=== PATIENT | male | born 1980 | race Caucasian/White ===

== ENCOUNTER 2018-06-24 14:33 | Emergency (ER) | payer SELFPAY ==
[~2018-06-24] VITALS: Ht 188 cm; Wt 97.5 kg
--- OUTSIDE RECORDS SUMMARY | 2018-06-24 14:37 | XMS REPORT ---
Author Author ABEL OZUNA Organization [facility] Address [address] [place] [address] Care Team Providers Care Slot Machine Floor Person Name Role Phone ABEL OZUNA Unavailable PROBLEMS Type Condition ICD9-CM Code [id number] Code Onset Dates Condition Status SNOMED Code Problem Cigarette smoker motivated to quit F17.200 Active [id number] ALLERGIES No Known Allergies ENCOUNTERS Encounter Location Date Diagnosis [facility] [id number] [address] Jan, [facility] [address] [facility] [id number] [address] Jan, Boil, back L02.222 and Cigarette smoker motivated to quit F17.200 IMMUNIZATIONS No Known Immunizations SOCIAL HISTORY Never Assessed REASON FOR VISIT Lump on back-twooden,RMA, pt complaining of a knot in the center of his back, been there for about three days now PLAN OF CARE Activity Details Follow Up prn Reason: VITAL SIGNS Height 6 ft 2 in in 2018-01-13 Weight 211.5 lbs 2018-01-13 Temperature 98.2 degrees Fahrenheit 2018-01-13 Heart Rate 104 bpm 2018-01-13 Respiratory Rate 18 2018-01-13 Oximetry on room air:94 % 2018-01-13 BMI 27.15 kg/m2 2018-01-13 Blood pressure systolic 110 mmHg 2018-01-13 Blood pressure diastolic 80 mmHg 2018-01-13 MEDICATIONS Medication Instructions Dosage Frequency Start Date End Date Duration Status Bactrim DS 800-160 MG Orally Twice a day 1 tablet 12h Jan,Jan 10 day(s) Active Chantix Starting Month Kai 0.5 MG X 11 & 1 MG X 42 Orally as directed as directed Jan, Feb, 4 weeks Active RESULTS No Results PROCEDURES No Known procedures INSTRUCTIONS MEDICATIONS ADMINISTERED No Known Medications MEDICAL (GENERAL) HISTORY Type Description Date Surgical History broken right arm 1985 Hospitalization History surgery
--- OUTSIDE RECORDS SUMMARY | 2018-06-24 14:37 | XMS REPORT ---
Author Author ABEL OZUNA Organization [facility] Address [address] [place] [address] Care Team Providers Care Power Tong Operator Name Role Phone ABEL OZUNA Unavailable PROBLEMS Type Condition ICD9-CM Code [id number] Code Onset Dates Condition Status SNOMED Code Problem Erectile dysfunction, unspecified erectile dysfunction type N52.9 Active [id number] Problem Cigarette smoker motivated to quit F17.200 Active [id number] ALLERGIES No Known Allergies ENCOUNTERS Encounter Location Date Diagnosis [facility] [id number] [address] Jan, Voiding dysfunction N39.8 and Erectile dysfunction, unspecified erectile dysfunction type N52.9 [facility] [id number] [place] [phone] Jan, Boil, back L02.222 and Cigarette smoker motivated to quit F17.200 IMMUNIZATIONS No Known Immunizations SOCIAL HISTORY Never Assessed REASON FOR VISIT Establish Care-ALICIA zapata, pt is having some bladder issues, having some erectile dysfunction issues PLAN OF CARE Activity Details Follow Up 6 Months, prn Reason: Pending Test LIPID PANEL Pending Test CMP Pending Test PSA (FREE AND TOTAL) VITAL SIGNS Height 6 ft 2 in in 2018-01-26 Weight 97.5 lbs 2018-01-26 Temperature 97.2 degrees Fahrenheit 2018-01-26 Heart Rate 98 bpm 2018-01-26 Respiratory Rate 18 2018-01-26 Oximetry on room air:98 % 2018-01-26 BMI 12.52 kg/m2 2018-01-26 Blood pressure systolic 102 mmHg 2018-01-26 Blood pressure diastolic 80 mmHg 2018-01-26 MEDICATIONS Medication Instructions Dosage Frequency Start Date End Date Duration Status Chantix Starting Month Kai 0.5 MG X 11 & 1 MG X 42 Orally as directed as directed Jan, Feb, 4 weeks Active Sildenafil Citrate 100 mg Orally as directed 1 tab 30min-1hr prior to sex Jan, 30 day(s) Active RESULTS Name Result Date Reference Range UA LONG DIP (IN HOUSE) Lot # [id number] Exp date 06/2018 Clarity Clear Color Yellow Odor None GLU Neg ALOK Neg KET Neg SG 1.030 BLO Neg pH 6.0 Protein Trace URO 0.2 NIT Neg BEV Neg Lot # Exp date PROCEDURES Procedure Date Ordered Result Body Site COMPREHEN METABOLIC PANEL Jan 26, 2018 LIPID PANEL Jan 26, 2018 VENIPUNCT, ROUTINE* Jan 26, 2018 ASSAY OF PSA, FREE Jan 26, 2018 ASSAY OF PSA, TOTAL Jan 26, 2018 URINALYSIS, AUTO, W/O SCOPE Jan 26, 2018 INSTRUCTIONS MEDICATIONS ADMINISTERED No Known Medications MEDICAL (GENERAL) HISTORY Type Description Date Surgical History broken right arm 1984 Hospitalization History surgery
--- NOTE | 2018-06-24 14:59 | ED Abdominal Pain ---
General Chief Complaint: Abdominal/GI Problems Stated Complaint: VOMITING Source of Information: Patient Exam Limitations: No Limitations History of Present Illness Date Seen by Provider: Jun 24, 2018 Time Seen by Provider: 14:58 Initial Comments Preoperative vehicle with reports of epigastric abdominal pain associated with nausea vomiting and diarrhea for the past 3 days. He had a similar episode about a month ago but it only lasted about 12-24 hours before resolving on its own. Otherwise healthy. Denies alcohol or marijuana use. Timing/Duration: 2-3 Days Severity/Quality: Moderate Location: Epigastric Radiation: No Radiation Activities at Onset: None Associated Symptoms: Nausea/Vomiting Allergies and Home Medications Allergies Coded Allergies: No Known Drug Allergies (Unverified , 06/24/18) Patient Home Medication List Home Medication List Reviewed: Yes Review of Systems Review of Systems Constitutional: see HPI EENTM: No Symptoms Reported Respiratory: No Symptoms Reported Cardiovascular: No Symptoms Reported Gastrointestinal: See HPI, Abdominal Pain, Diarrhea, Nausea, Vomiting Genitourinary: No Symptoms Reported Musculoskeletal: no symptoms reported Skin: no symptoms reported Psychiatric/Neurological: No Symptoms Reported Endocrine: No Symptoms Reported Hematologic/Lymphatic: No Symptoms Reported Past [id number] Hx Patient Social History Recent Foreign Travel: No Contact w/Someone Who Travel: No Physical Exam Vital Signs Vital Signs - First Documented 06/24/18 14:55 Temp 98.1 Pulse 69 Resp 18 B/P (MAP) 119/68 (85) Pulse Ox 98 Capillary Refill : Height/Weight/BMI Height: '" Weight: lbs. oz. kg; BMI Method: General Appearance: WD/WN, no apparent distress HEENT: PERRL/EOMI, normal ENT inspection Respiratory: normal breath sounds, no respiratory distress, no accessory muscle use Gastrointestinal: normal bowel sounds, soft, tenderness Extremities: normal range of motion, non-tender Neurologic/Psychiatric: alert, normal mood/affect, oriented x 3 Skin: normal color, warm/dry Progress/Results/Core Measures Results/Orders Lab Results Laboratory Tests Test 06/24/18 15:11 06/24/18 16:29 Range/Units White Blood Count 11.7 H 4.3-11.0 10^3/uL Red Blood Count 4.77 4.35-5.85 10^6/uL Hemoglobin 14.5 13.3-17.7 G/DL Hematocrit 42 40-54 % Mean Corpuscular Volume 88 80-99 FL Mean Corpuscular Hemoglobin 30 25-34 PG Mean Corpuscular Hemoglobin Concent 35 32-36 G/DL Red Cell Distribution Width 13.4 10.0-14.5 % Platelet Count 339 130-400 10^3/uL Mean Platelet Volume 9.3 7.4-10.4 FL Neutrophils (%) (Auto) 68 42-75 % Lymphocytes (%) (Auto) 24 12-44 % Monocytes (%) (Auto) 8 0-12 % Eosinophils (%) (Auto) 1 0-10 % Basophils (%) (Auto) 0 0-10 % Neutrophils # (Auto) 7.9 H 1.8-7.8 X 10^3 Lymphocytes # (Auto) 2.8 1.0-4.0 X 10^3 Monocytes # (Auto) 0.9 0.0-1.0 X 10^3 Eosinophils # (Auto) 0.1 0.0-0.3 10^3/uL Basophils # (Auto) 0.0 0.0-0.1 10^3/uL Sodium Level 142 135-145 MMOL/L Potassium Level 3.6 3.6-5.0 MMOL/L Chloride Level 106 98-107 MMOL/L Carbon Dioxide Level 24 21-32 MMOL/L Anion Gap 12 5-14 MMOL/L Blood Urea Nitrogen 19 H 7-18 MG/DL Creatinine 0.94 0.60-1.30 MG/DL Estimat Glomerular Filtration Rate > 60 BUN/Creatinine Ratio 20 Glucose Level 104 70-105 MG/DL Calcium Level 9.6 8.5-10.1 MG/DL Corrected Calcium 8.5-10.1 MG/DL Total Bilirubin 0.6 0.1-1.0 MG/DL Aspartate Amino Transf (AST/SGOT) 13 5-34 U/L Alanine Aminotransferase (ALT/SGPT) 14 0-55 U/L Alkaline Phosphatase 95 40-136 U/L Total Protein 7.2 6.4-8.2 GM/DL Albumin 4.7 H 3.2-4.5 GM/DL Lipase 184 H 8-78 U/L Urine Color YELLOW Urine Clarity CLEAR Urine pH 7 5-9 Urine Specific Webster 1.010 L 1.016-1.022 Urine Protein 2+ H NEGATIVE Urine Glucose (UA) NEGATIVE NEGATIVE Urine Ketones 2+ H NEGATIVE Urine Nitrite NEGATIVE NEGATIVE Urine Bilirubin NEGATIVE NEGATIVE Urine Urobilinogen NORMAL NORMAL MG/DL Urine Leukocyte Esterase 1+ H NEGATIVE Urine RBC (Auto) NEGATIVE NEGATIVE Urine RBC NONE /HPF Urine WBC 2-5 /HPF Urine Squamous Epithelial Cells 2-5 /HPF Urine Crystals NONE /LPF Urine Bacteria NEGATIVE /HPF Urine Casts NONE /LPF Urine Mucus NEGATIVE /LPF Urine Culture Indicated NO Urine Opiates Screen NEGATIVE NEGATIVE Urine Oxycodone Screen NEGATIVE NEGATIVE Urine Methadone Screen NEGATIVE NEGATIVE Urine Propoxyphene Screen NEGATIVE NEGATIVE Urine Barbiturates Screen NEGATIVE NEGATIVE Ur Tricyclic Antidepressants Screen NEGATIVE NEGATIVE Urine Phencyclidine Screen NEGATIVE NEGATIVE Urine Amphetamines Screen NEGATIVE NEGATIVE Urine Methamphetamines Screen NEGATIVE NEGATIVE Urine Benzodiazepines Screen NEGATIVE NEGATIVE Urine Cocaine Screen NEGATIVE NEGATIVE Urine Cannabinoids Screen POSITIVE H NEGATIVE My Orders Orders - JODI HAGEN APRN Cbc With Automated Diff (06/24/18 14:43) Comprehensive Metabolic Panel (06/24/18 14:43) Ua Culture If Indicated (06/24/18 14:43) Lipase (06/24/18 14:43) Iv Heplock-Insert (Order) (06/24/18 14:43) Ns Iv 1000 Ml (Sodium Chloride 0.9%) (06/24/18 15:00) Ondansetron Injection (Zofran Injectio (06/24/18 15:00) Ketorolac Injection (Toradol Injection) (06/24/18 15:00) Fentanyl Injection (Sublimaze Injection (06/24/18 15:00) Ct Abdomen/Pelvis W (06/24/18 14:57) Iohexol Injection (Omnipaque 350 Mg/Ml 1 (06/24/18 15:15) Received Contrast (Hold Metformin- Contr (06/24/18 15:15) Fentanyl Injection (Sublimaze Injection (06/24/18 16:00) Promethazine Injection (Phenergan Injec (06/24/18 16:00) Ns Iv 1000 Ml (Sodium Chloride 0.9%) (06/24/18 16:00) Drug Screen Stat (Urine) (06/24/18 15:59) Haloperidol Injection (Haldol Injectio (06/24/18 17:45) Ns (Ivpb) (Sodium Chloride 0.9%) (06/24/18 17:45) Haloperidol Injection (Haldol Injectio (06/24/18 17:45) Medications Given in ED Current Medications Medications Dose Ordered Sig/Ward Route Start Time Stop Time Status Last Admin Dose Admin Fentanyl Citrate 50 mcg ONCE ONCE IVP 06/24/18 15:00 06/24/18 15:01 DC 06/24/18 15:15 50 MCG Fentanyl Citrate 50 mcg ONCE ONCE IVP 06/24/18 16:00 06/24/18 16:01 DC 06/24/18 16:02 50 MCG Iohexol 100 ml ONCE ONCE IV 06/24/18 15:15 06/24/18 15:16 DC 06/24/18 15:40 100 ML Ketorolac Tromethamine 15 mg ONCE ONCE IVP 06/24/18 15:00 06/24/18 15:01 DC 06/24/18 15:16 15 MG Ondansetron HCl 8 mg ONCE ONCE IVP 06/24/18 15:00 06/24/18 15:01 DC 06/24/18 15:15 8 MG Promethazine HCl 12.5 mg ONCE ONCE IVP 06/24/18 16:00 06/24/18 16:01 DC 06/24/18 16:02 12.5 MG Vital Signs/I&O 06/24/18 14:55 Temp 98.1 Pulse 69 Resp 18 B/P (MAP) 119/68 (85) Pulse Ox 98 Departure Communication (Admissions) 5220-he denies much improvement after 100 g of fentanyl and 8 of Zofran and 12.5 mg of Phenergan.. He initially reported no marijuana use. However this is in his urine. I discussed this with him and he states that he actually uses it probably more than 2-3 times per week he estimates. I suspect hyperemesis cannabinoids syndrome so we will try some haloperidol and IV fluids. Impression Primary Impression: Cannabinoid hyperemesis syndrome Disposition: HOME, SELF-CARE Condition: Stable Departure-Patient Inst. Decision time for Depature: 17:40 Patient Instructions: No Instuctions Given Add. Discharge Instructions: 1. This tends to be a recurrent problem in individuals who continue to smoke marijuana frequently. Discontinuing marijuana use is the most helpful treatment for this. At home, you can try warm showers letting the hot water hit your abdomen or topical capsaicin cream applied to the abdomen. Clear liquids only for the next 24 hours. Return to the emergency room for any concerns. Scripts Prochlorperazine Maleate (Compazine) 10 Mg Tablet 10 MG PO TID PRN for NAUSEA/VOMITING, #14 TAB Prov: JODI HAGEN APRN 06/24/18 Work/School Note: Work Release Form Date Seen in the Emergency Department: Jun 24, 2018 Return to Work: Jun 26, 2018 JODI HAGEN APRN Jun 24, 2018 14:59
[2018-06-24] MEDS ORDERED: fentaNYL INJECTION 100 MCG/2 ML AMP IVP ONE ×2 (15:00→16:00)
[2018-06-24] MEDS ORDERED: ONDANSETRON 4 MG/2 ML (SDV) Z0FRAN IVP ONE (15:00)
[2018-06-24] MEDS ORDERED: NS IV 1000 ML 1,000 ML IV SCH ×2 (15:00→16:00)
[2018-06-24] MEDS ORDERED: KETOROLAC 30 MG/ML VIAL IVP ONE (15:00)
[2018-06-24 15:14] LABS: BASOPHILS % (AUTO) 0 % (0-10); EOSINOPHILS # (AUTO) 0.1 10^3/uL (0.0-0.3); EOSINOPHILS % (AUTO) 1 % (0-10); HEMATOCRIT 42 % (40-54); HEMOGLOBIN 14.5 G/DL (13.3-17.7); LYMPHOCYTES # (AUTO) 2.8 X 10^3 (1.0-4.0); LYMPHOCYTES % (AUTO) 24 % (12-44); MEAN CORPUSCULAR HEMOGLOBIN 30 PG (25-34); MEAN CORPUSCULAR HGB CONC 35 G/DL (32-36); MEAN CORPUSCULAR VOLUME 88 FL (80-99); MEAN PLATELET VOLUME 9.3 FL (7.4-10.4); MONOCYTES # (AUTO) 0.9 X 10^3 (0.0-1.0); MONOCYTES % (AUTO) 8 % (0-12); NEUTROPHILS # (AUTO) 7.9 X 10^3 (1.8-7.8); NEUTROPHILS % (AUTO) 68 % (42-75); PLATELET COUNT 339 10^3/uL (130-400); RED CELL DISTRIBUTION WIDTH 13.4 % (10.0-14.5); WHITE BLOOD COUNT 11.7 10^3/uL (4.3-11.0)
[2018-06-24] MEDS ORDERED: IOHEXOL 350 MG/ML 100 ML (OMNIPAQUE 350) VIAL IV ONE (15:15)
[2018-06-24] MEDS ORDERED: HOLD METFORMIN - RECEIVED CONTRAST 20 ML VIAL IV SCH (15:15)
[2018-06-24 15:41] LABS: ALANINE AMINOTRANSFERASE 14 U/L (0-55); ALBUMIN 4.7 GM/DL (3.2-4.5); ALKALINE PHOSPHATASE 95 U/L (40-136); BILIRUBIN,TOTAL 0.6 MG/DL (0.1-1.0); BUN/CREATININE RATIO 20; CALCIUM 9.6 MG/DL (8.5-10.1); CARBON DIOXIDE 24 MMOL/L (21-32); CHLORIDE 106 MMOL/L (98-107); CREATININE SERUM 0.94 MG/DL (0.60-1.30); GFR ESTIMATED > 60; GLUCOSE 104 MG/DL (70-105); LIPASE 184 U/L (8-78); POTASSIUM 3.6 MMOL/L (3.6-5.0); SODIUM 142 MMOL/L (135-145); TOTAL PROTEIN 7.2 GM/DL (6.4-8.2)
--- NOTE | 2018-06-24 15:58 | Diagnostic Imaging Report ---
PROCEDURE: CT abdomen and pelvis with contrast. TECHNIQUE: Multiple contiguous axial images were obtained through the abdomen and pelvis after administration of intravenous contrast. Auto Exposure Controls were utilized during the CT exam to meet ALARA standards for radiation dose reduction. INDICATION: Vomiting with nausea and abdominal cramping. COMPARISON: No prior studies are available for comparison. FINDINGS: The lung bases are clear. The liver and gallbladder are unremarkable. No discrete liver mass or evidence of biliary ductal dilatation is seen. Pancreas and spleen are unremarkable. No adrenal mass is detected. The kidneys are unremarkable. The aorta is non-aneurysmal. No central retroperitoneal or mesenteric lymphadenopathy is seen. The small and large bowel loops are normal in caliber. There is no obstruction. Appendix is not well visualized, but no inflammatory process in the right lower quadrant is seen. There is no ascites. Unopacified bladder is unremarkable. Prostate is unremarkable. No pelvic lymphadenopathy is seen. Bony structures appear nonacute. IMPRESSION: Unremarkable CT of the abdomen and pelvis. No acute abnormality is detected. Dictated by: Dictated on workstation # [id number]
[2018-06-24] MEDS ORDERED: PROMETHAZINE INJ 25 MG/ML (PHENERGAN) AMP IVP ONE (16:00)
[2018-06-24 16:37] LABS: BILIRUBIN,URINE NEGATIVE (NEGATIVE); CLARITY,URINE CLEAR; COLOR,URINE YELLOW; GLUCOSE, URINE (UA) NEGATIVE (NEGATIVE); KETONES,URINE 2+ (NEGATIVE); LEUKOCYTE ESTERASE ,URINE 1+ (NEGATIVE); NITRITE,URINE NEGATIVE (NEGATIVE); PH,URINE 7 (5-9); PROTEIN,URINE 2+ (NEGATIVE); UROBILINOGEN,URINE NORMAL (NORMAL)
[2018-06-24 16:53] LABS: BACTERIA,URINE NEGATIVE /HPF
[2018-06-24 17:01] LABS: AMPHETAMINE SCREEN, URINE NEGATIVE (NEGATIVE); BARBITURATE SCREEN URINE NEGATIVE (NEGATIVE); BENZODIAZEPINES SCREEN URINE NEGATIVE (NEGATIVE); CANNABINOID SCREEN, URINE POSITIVE (NEGATIVE); COCAINE SCREEN URINE NEGATIVE (NEGATIVE); METHADONE STAT NEGATIVE (NEGATIVE); METHAMPHETAMINE SCREEN URINE S NEGATIVE (NEGATIVE); OPIATE SCREEN URINE NEGATIVE (NEGATIVE); OXYCODONE STAT NEGATIVE (NEGATIVE); PROPOXYPHENE STAT NEGATIVE (NEGATIVE); TRICYCLIC ANTIDEPRESSANTS SCRE NEGATIVE (NEGATIVE)
[2018-06-24] MEDS ORDERED: NS (IVPB) 250 ML IV ONE (17:45)
[2018-06-24] MEDS ORDERED: HALOPERIDOL 5 MG/ML (HALDOL) AMP IV ONE ×2 (17:45)
[2018-06-24] MEDS ORDERED: PROC-1 PO (17:48)
[2018-06-24 18:16] VITALS: BP 117/58
== END 2018-06-24 18:23 | disposition home or self-care (01) ==
LOC: ER 14:35
DX: F12.188 Cannabis abuse with other cannabis-induced disorder (principal); R11.10 Vomiting, unspecified
CPT/HCPCS: 36415; 74177; 80053; 80306; 81000; 83690; 85025

== ENCOUNTER 2019-05-16 08:04 | Emergency (ER) | payer OTHER ==
[~2019-05-16] VITALS: Ht 187 cm; Wt 99.7 kg
[~2019-05-16 08:04] MED LIST: PROC-1 PO
[2019-05-16] MEDS ORDERED: NS IV 1000 ML 1,000 ML IV SCH (08:14)
[2019-05-16] MEDS ORDERED: ONDANSETRON 4 MG/2 ML (SDV) Z0FRAN ONE (08:14)
[2019-05-16] MEDS ORDERED: NS IV 1000 ML 1,000 ML IV ONE (08:14)
[2019-05-16] MEDS ORDERED: fentaNYL INJECTION 100 MCG/2 ML AMP ONE (08:14)
[2019-05-16] MEDS ORDERED: fentaNYL INJECTION 100 MCG/2 ML AMP IVP ONE ×2 (08:15→09:15)
[2019-05-16] MEDS ORDERED: ONDANSETRON 4 MG/2 ML (SDV) Z0FRAN IVP ONE (08:15)
--- NOTE | 2019-05-16 08:18 | ED Abdominal Pain ---
General Chief Complaint: Abdominal/GI Problems Stated Complaint: PANCREATITIS;VOMITING Source of Information: Patient, Other Exam Limitations: No Limitations History of Present Illness Date Seen by Provider: May 16, 2019 Time Seen by Provider: 07:59 Initial Comments Patient presents to ER by private conveyance with chief complaint is having some epigastric abdominal pain that is severe, causing sweating chills but no fever that he is aware of. He is having nausea and vomiting. He has a history of pancreatitis and this is his sixth bout in the past year and a half. He thought he had another control [facility]. This morning he was unable to keep down Zofran. He rates his pain as severe. He does not have anything at home for the pain. He has no history of abdominal surgeries. He's never drank alcohol. No history of diabetes or hypertriglyceridemia. Allergies and Home Medications Allergies Coded Allergies: No Known Drug Allergies (Unverified , 06/24/18) Home Medications Hydrocodone/Acetaminophen 1 Each Tablet, 1 TAB PO Q6H Prescribed by: KASSI ALLEN on 05/16/19 1108 Ondansetron 4 Mg Tab.rapdis, 4 MG PO Q6H PRN for NAUSEA/VOMITING Prescribed by: KASSI ALLEN on 05/16/19 1108 Prochlorperazine Maleate 10 Mg Tablet, 10 MG PO TID PRN for NAUSEA/VOMITING Prescribed by: JODI HAGEN on 06/24/18 1748 Promethazine HCl 25 Mg Tablet, 25 MG PO Q6H PRN for NAUSEA/VOMITING Prescribed by: KASSI ALLEN on 05/16/19 1108 Patient Home Medication List Home Medication List Reviewed: Yes Review of Systems Review of Systems Constitutional: No chills, No diaphoresis EENTM: No Blurred Vision, No Double Vision Respiratory: Denies Cough, Denies Shortness of Air Cardiovascular: Denies Chest Pain, Denies Lightheadedness Gastrointestinal: See HPI; Denies Abdomen Distended; Abdominal Pain; Denies Constipated; Diarrhea, Nausea, Poor Fluid Intake, Vomiting Genitourinary: Denies Burning, Denies Discharge Musculoskeletal: No back pain, No joint pain Skin: No pruritus, No rash Psychiatric/Neurological: Denies Anxiety, Denies Depressed All Other Systems Reviewed Negative Unless Noted: Yes Past Fbcquar-Tibyvx-Frbbfw Hx Patient Social History Alcohol Use: Denies Use Recreational Drug Use: Yes Drug of Choice: cannabis Smoking Status: Former Smoker Type Used: Cigarettes Former Smoker, Quit: Jan 07, 2018 Recent Hopitalizations: No Seasonal Allergies Seasonal Allergies: No Past Medical History Surgeries: No Respiratory: No Cardiac: No Neurological: No Genitourinary: No Gastrointestinal: No Musculoskeletal: No Endocrine: No HEENT: No Cancer: No Psychosocial: No Integumentary: No Physical Exam Vital Signs Vital Signs - First Documented 05/16/19 08:07 Temp 36.3 Pulse 66 Resp 16 B/P (MAP) 140/87 (104) Pulse Ox 99 O2 Delivery Room Air Capillary Refill : Height/Weight/BMI Height: 6'2.00" Weight: 215lbs. oz. 97.338112ra; BMI Method:Stated General Appearance: WD/WN, no apparent distress HEENT: PERRL/EOMI, pharynx normal Neck: full range of motion, supple, normal inspection Respiratory: lungs clear, normal breath sounds, no respiratory distress, no accessory muscle use Cardiovascular: normal peripheral pulses, regular rate, rhythm Peripheral Pulses: 2+ Radial Pulses (R), 2+ Radial Pulses (L) Gastrointestinal: normal bowel sounds, no organomegaly, tenderness (epigastric region. Negative for Olivas sign) Extremities: normal range of motion, non-tender, normal capillary refill Neurologic/Psychiatric: alert, normal mood/affect, oriented x 3 Progress/Results/Core Measures Results/Orders Lab Results Laboratory Tests Test 05/16/19 08:10 05/16/19 09:40 Range/Units White Blood Count 13.2 H 4.3-11.0 10^3/uL Red Blood Count 5.36 4.35-5.85 10^6/uL Hemoglobin 16.5 13.3-17.7 G/DL Hematocrit 47 40-54 % Mean Corpuscular Volume 88 80-99 FL Mean Corpuscular Hemoglobin 31 25-34 PG Mean Corpuscular Hemoglobin Concent 35 32-36 G/DL Red Cell Distribution Width 12.8 10.0-14.5 % Platelet Count 340 130-400 10^3/uL Mean Platelet Volume 9.5 7.4-10.4 FL Neutrophils (%) (Auto) 65 42-75 % Lymphocytes (%) (Auto) 24 12-44 % Monocytes (%) (Auto) 9 0-12 % Eosinophils (%) (Auto) 2 0-10 % Basophils (%) (Auto) 0 0-10 % Neutrophils # (Auto) 8.6 H 1.8-7.8 X 10^3 Lymphocytes # (Auto) 3.2 1.0-4.0 X 10^3 Monocytes # (Auto) 1.2 H 0.0-1.0 X 10^3 Eosinophils # (Auto) 0.3 0.0-0.3 10^3/uL Basophils # (Auto) 0.0 0.0-0.1 10^3/uL Sodium Level 143 135-145 MMOL/L Potassium Level 3.9 3.6-5.0 MMOL/L Chloride Level 105 98-107 MMOL/L Carbon Dioxide Level 22 21-32 MMOL/L Anion Gap 16 H 5-14 MMOL/L Blood Urea Nitrogen 13 7-18 MG/DL Creatinine 1.02 0.60-1.30 MG/DL Estimat Glomerular Filtration Rate > 60 BUN/Creatinine Ratio 13 Glucose Level 114 H 70-105 MG/DL Calcium Level 10.0 8.5-10.1 MG/DL Corrected Calcium 8.5-10.1 MG/DL Total Bilirubin 0.4 0.1-1.0 MG/DL Aspartate Amino Transf (AST/SGOT) 14 5-34 U/L Alanine Aminotransferase (ALT/SGPT) 13 0-55 U/L Alkaline Phosphatase 117 40-136 U/L C-Reactive Protein High Sensitivity 0.28 0.00-0.50 MG/DL Total Protein 7.5 6.4-8.2 GM/DL Albumin 4.7 H 3.2-4.5 GM/DL Triglycerides Level 146 <150 MG/DL Amylase Level 42 25-125 U/L Lipase 29 8-78 U/L Urine Color YELLOW Urine Clarity SL CLOUDY Urine pH 8.5 5-9 Urine Specific [place] 1.015 L 1.016-1.022 Urine Protein NEGATIVE NEGATIVE Urine Glucose (UA) NEGATIVE NEGATIVE Urine Ketones NEGATIVE NEGATIVE Urine Nitrite NEGATIVE NEGATIVE Urine Bilirubin NEGATIVE NEGATIVE Urine Urobilinogen 0.2 < = 1.0 MG/DL Urine Leukocyte Esterase NEGATIVE NEGATIVE Urine RBC (Auto) NEGATIVE NEGATIVE Urine RBC NONE /HPF Urine WBC 0-2 /HPF Urine Squamous Epithelial Cells 0-2 /HPF Urine Crystals PRESENT H /LPF Urine Amorphous Sediment MOD CLARISA PHOSPHATE H /LPF Urine Bacteria NEGATIVE /HPF Urine Casts NONE /LPF Urine Mucus NEGATIVE /LPF Urine Culture Indicated NO Urine Opiates Screen NEGATIVE NEGATIVE Urine Oxycodone Screen NEGATIVE NEGATIVE Urine Methadone Screen NEGATIVE NEGATIVE Urine Propoxyphene Screen NEGATIVE NEGATIVE Urine Barbiturates Screen NEGATIVE NEGATIVE Ur Tricyclic Antidepressants Screen NEGATIVE NEGATIVE Urine Phencyclidine Screen NEGATIVE NEGATIVE Urine Amphetamines Screen NEGATIVE NEGATIVE Urine Methamphetamines Screen NEGATIVE NEGATIVE Urine Benzodiazepines Screen NEGATIVE NEGATIVE Urine Cocaine Screen NEGATIVE NEGATIVE Urine Cannabinoids Screen POSITIVE H NEGATIVE My Orders Orders - KASSI ALLEN Fentanyl Injection (Sublimaze Injection (05/16/19 08:15) Ondansetron Injection (Zofran Injectio (05/16/19 08:15) Cbc With Automated Diff (05/16/19 08:14) Comprehensive Metabolic Panel (05/16/19 08:14) Lipase (05/16/19 08:14) Amylase (05/16/19 08:14) Hs C Reactive Protein (05/16/19 08:14) Ed Iv/Invasive Line Start (05/16/19 08:14) Ns Iv 1000 Ml (Sodium Chloride 0.9%) (05/16/19 08:14) Ns Iv 1000 Ml (Sodium Chloride 0.9%) (05/16/19 08:14) Ct Abdomen/Pelvis W (05/16/19 08:14) Ua Culture If Indicated (05/16/19 08:14) Triglycerides (05/16/19 08:18) Pantoprazole Injection (Protonix Injecti (05/16/19 08:30) Fentanyl Injection (Sublimaze Injection (05/16/19 08:14) Ondansetron Injection (Zofran Injectio (05/16/19 08:14) Iohexol Injection (Omnipaque 350 Mg/Ml 1 (05/16/19 08:45) Received Contrast (Hold Metformin- Contr (05/16/19 08:45) Ns (Ivpb) (Sodium Chloride 0.9% Ivpb Bag (05/16/19 08:45) Fentanyl Injection (Sublimaze Injection (05/16/19 09:15) Drug Screen Stat (Urine) (05/16/19 09:14) Morphine Injection (Morphine Injection (05/16/19 11:20) Ketamine Syringe (Ed Only) (Ketamine Syr (05/16/19 11:30) Promethazine Injection (Phenergan Injec (05/16/19 11:30) Ed Iv/Invasive Line Start (05/16/19 11:20) Ns Iv 500 Ml (Sodium Chloride 0.9%) (05/16/19 11:20) Medications Given in ED Current Medications Medications Dose Ordered Sig/Ward Route Start Time Stop Time Status Last Admin Dose Admin Fentanyl Citrate 50 mcg ONCE ONCE IVP 05/16/19 08:15 05/16/19 08:18 DC 05/16/19 08:22 50 MCG Fentanyl Citrate 50 mcg ONCE ONCE IVP 05/16/19 09:15 05/16/19 09:16 DC 05/16/19 09:40 50 MCG Iohexol 100 ml ONCE ONCE IV 05/16/19 08:45 05/16/19 08:46 DC 05/16/19 09:25 100 ML Ketamine HCl 25 mg ONCE ONCE IV 05/16/19 11:30 05/16/19 11:31 DC 05/16/19 11:37 25 MG Ondansetron HCl 8 mg ONCE ONCE IVP 05/16/19 08:15 05/16/19 08:18 DC 05/16/19 08:22 8 MG Pantoprazole 40 mg ONCE ONCE IV 05/16/19 08:30 05/16/19 08:31 DC 05/16/19 08:26 40 MG Promethazine HCl 25 mg ONCE ONCE IVP 05/16/19 11:30 05/16/19 11:31 DC 05/16/19 11:29 25 MG Sodium Chloride 100 ml ONCE ONCE IV 05/16/19 08:45 05/16/19 08:46 DC 05/16/19 09:26 80 ML Sodium Chloride 500 ml @ 0 mls/hr Q0M ONCE IV 05/16/19 11:20 05/16/19 11:22 DC 05/16/19 11:33 500 MLS/HR Sodium Chloride 1,000 ml @ 0 mls/hr Q0M ONCE IV 05/16/19 08:14 05/16/19 08:18 DC 05/16/19 08:27 1,000 MLS/HR Vital Signs/I&O 05/16/19 08:07 Temp 36.3 Pulse 66 Resp 16 B/P (MAP) 140/87 (104) Pulse Ox 99 O2 Delivery Room Air Progress Progress Note #1: Time: 10:51 Progress Note 100 mg of fentanyl get his pain under control. His nausea is under control with 8 mg of Zofran. Lipase and amylase are normal. No evidence of pancreatitis on CT. Could be cannabis related hyperemesis syndrome. Gastritis? Progress Note #2: Time: 11:21 Progress Note The patient is no longer sweating in his vital signs are aseptic. We reviewed his labs and findings. He still having some intractable nausea and spitting but no vomiting. He is having some significant pain. We have offered an observation stay versus try to get his pain and nausea under better control the ER and he would prefer to try and go home today. We'll going to try different opiates since he did not find the fentanyl very effective. Morphine, ketamine, Phenergan and 500 cc more fluid. Progress Note #3: Time: 12:07 Progress Note Patient says his pain is no longer bothering him and he no longer has any nausea or vomiting. We are going to allow him to go home with return precautions and the medications previously prescribed for pain and nausea. Diagnostic Imaging Diagonstic Imaging: CT (with IV contrast) Plain Films/CT/US/NM/MRI: abdomen, pelvis Comments NAME: JOZEF GARCIA MED REC#: [id number] PT STATUS: REG ER : 1980 PHYSICIAN: KASSI ALLEN MD ADMIT DATE: 05/16/19/ER Draft Date of Exam:05/16/19 CT ABDOMEN/PELVIS W PROCEDURE: CT abdomen and pelvis with contrast. TECHNIQUE: Multiple contiguous axial images were obtained through the abdomen and pelvis after administration of intravenous contrast. Auto Exposure Controls were utilized during the CT exam to meet ALARA standards for radiation dose reduction. INDICATION: Pancreatitis and epigastric pain for 3 days. COMPARISON: Prior CT from 06/24/2018. FINDINGS: The lung bases are clear. The liver and gallbladder are unremarkable. No mass or ductal dilatation is seen. The pancreas does show normal homogeneous enhancement. No peripancreatic inflammatory change or fluid is detected. The spleen is unremarkable. No adrenal mass is seen. The kidneys are unremarkable. The aorta is non-aneurysmal. The small and large bowel loops are of normal caliber. There is no obstruction. No free fluid is seen. The bladder is unremarkable. No definite abdominal or pelvic lymphadenopathy is seen. The bony structures are nonacute. IMPRESSION: Essentially unremarkable CT abdomen and pelvis. There is no CT evidence of acute pancreatitis. Dictated on workstation # [id number] Dict: 05/16/19938 Trans: 05/16/19945 [id number] Interpreted by: MILLER CAI MD Electronically signed by: Reviewed: Reviewed by Me Departure Impression Primary Impression: Epigastric abdominal pain Additional Impression: Nausea & vomiting Qualified Codes: R11.2 - Nausea with vomiting, unspecified Disposition: HOME, SELF-CARE Condition: Improved Departure-Patient Inst. Decision time for Depature: 11:04 Referrals: YAO SHEPHERD MD NO,LOCAL PHYSICIAN (PCP) Primary Care Physician Patient Instructions: Gastritis (DC) Add. Discharge Instructions: Your workup today was unremarkable but something is causing you to have significant amount of pain and nausea. The next step in your workup would be to get set up for endoscopy or other imaging studies. Dr. Shepherd, general surgery can help you do this and he will get his clinic a call today or tomorrow and set up an appointment. In the meanwhile we'll put you on omeprazole 20 mg twice a day as well as Carafate 4 times a day. Take the Carafate tablet half an hour prior to meals and at bedtime. For your nausea we'll give you Zofran to take one to 2 tablets every 6 hours as needed. If you're still having breakthrough nausea you can use the Phenergan 1 tablet every 6 hours. Phenergan will cause drowsiness. For your pain is suggest you use Tylenol 1000 mg every 8 hours as needed. You can also use ibuprofen 800 mg every 8 hours or Aleve 2 tablets twice a day. If you're still having significant breakthrough pain daily from being functional then you can use the hydrocodone one tablet every 6 hours as needed. Hydrocodone will cause drowsiness as well as constipation. If you experience constipation I suggest MiraLAX or Dulcolax. If you begin to have fever or other worrisome symptoms such as intractable pain or nausea then please return to the ER for further evaluation and management. All discharge instructions reviewed with patient and/or family. Voiced understanding. Scripts Promethazine HCl (Promethazine Tablet) 25 Mg Tablet 25 MG PO Q6H PRN for NAUSEA/VOMITING, #15 TAB 0 Refills Prov: KASSI ALLEN 05/16/19 Ondansetron (Ondansetron Odt) 4 Mg Tab.rapdis 4 MG PO Q6H PRN for NAUSEA/VOMITING, #20 TAB 0 Refills Prov: KASSI ALLEN 05/16/19 Hydrocodone/Acetaminophen (Hydrocodone/Acetaminophen 5 MG/325 MG TAB) 1 Each Tablet 1 TAB PO Q6H for Pain MDD 10 TABS for 7 Days, #20 TAB 0 Refills Prov: KASSI ALLEN 05/16/19 Work/School Note: School/Childcare Release Date Seen in the Emergency Department: May 16, 2019 Time Dismissed from Emergency Department: 11:08 Return to School: May 18, 2019 Restrictions: No Restrictions Copy Copies To 1: YAO SHEPHERD MD, TITUS J May 16, 2019 08:18
[2019-05-16 08:23] LABS: BASOPHILS % (AUTO) 0 % (0-10); EOSINOPHILS # (AUTO) 0.3 10^3/uL (0.0-0.3); EOSINOPHILS % (AUTO) 2 % (0-10); HEMATOCRIT 47 % (40-54); HEMOGLOBIN 16.5 G/DL (13.3-17.7); LYMPHOCYTES # (AUTO) 3.2 X 10^3 (1.0-4.0); LYMPHOCYTES % (AUTO) 24 % (12-44); MEAN CORPUSCULAR HEMOGLOBIN 31 PG (25-34); MEAN CORPUSCULAR HGB CONC 35 G/DL (32-36); MEAN CORPUSCULAR VOLUME 88 FL (80-99); MEAN PLATELET VOLUME 9.5 FL (7.4-10.4); MONOCYTES # (AUTO) 1.2 X 10^3 (0.0-1.0); MONOCYTES % (AUTO) 9 % (0-12); NEUTROPHILS # (AUTO) 8.6 X 10^3 (1.8-7.8); NEUTROPHILS % (AUTO) 65 % (42-75); PLATELET COUNT 340 10^3/uL (130-400); RED CELL DISTRIBUTION WIDTH 12.8 % (10.0-14.5); WHITE BLOOD COUNT 13.2 10^3/uL (4.3-11.0)
[2019-05-16] MEDS ORDERED: PANTOPRAZOLE 40 MG (PROTONIX) VIAL IV ONE (08:30)
[2019-05-16 08:44] LABS: ALANINE AMINOTRANSFERASE 13 U/L (0-55); ALBUMIN 4.7 GM/DL (3.2-4.5); ALKALINE PHOSPHATASE 117 U/L (40-136); AMYLASE 42 U/L (25-125); BILIRUBIN,TOTAL 0.4 MG/DL (0.1-1.0); BUN/CREATININE RATIO 13; CARBON DIOXIDE 22 MMOL/L (21-32); CHLORIDE 105 MMOL/L (98-107); CREATININE SERUM 1.02 MG/DL (0.60-1.30); GFR ESTIMATED > 60; GLUCOSE 114 MG/DL (70-105); LIPASE 29 U/L (8-78); POTASSIUM 3.9 MMOL/L (3.6-5.0); SODIUM 143 MMOL/L (135-145); TOTAL PROTEIN 7.5 GM/DL (6.4-8.2)
[2019-05-16] MEDS ORDERED: IOHEXOL 350 MG/ML 100 ML (OMNIPAQUE 350) VIAL IV ONE (08:45)
[2019-05-16] MEDS ORDERED: HOLD METFORMIN - RECEIVED CONTRAST 20 ML VIAL IV SCH (08:45)
[2019-05-16] MEDS ORDERED: NS 100 ML (IVPB) BAG IV ONE (08:45)
--- NOTE | 2019-05-16 09:38 | NUR ---
PT BACK FROM CT. THEY REPORT IV CAME OUT ET THEY RESTARTED IT.
--- NOTE | 2019-05-16 09:47 | Diagnostic Imaging Report ---
PROCEDURE: CT abdomen and pelvis with contrast. TECHNIQUE: Multiple contiguous axial images were obtained through the abdomen and pelvis after administration of intravenous contrast. Auto Exposure Controls were utilized during the CT exam to meet ALARA standards for radiation dose reduction. INDICATION: Pancreatitis and epigastric pain for 3 days. COMPARISON: Prior CT from 06/24/2018. FINDINGS: The lung bases are clear. The liver and gallbladder are unremarkable. No mass or ductal dilatation is seen. The pancreas does show normal homogeneous enhancement. No peripancreatic inflammatory change or fluid is detected. The spleen is unremarkable. No adrenal mass is seen. The kidneys are unremarkable. The aorta is non-aneurysmal. The small and large bowel loops are of normal caliber. There is no obstruction. No free fluid is seen. The bladder is unremarkable. No definite abdominal or pelvic lymphadenopathy is seen. The bony structures are nonacute. IMPRESSION: Essentially unremarkable CT abdomen and pelvis. There is no CT evidence of acute pancreatitis. Dictated by: Dictated on workstation # [id number]
[2019-05-16 09:52] LABS: BILIRUBIN,URINE NEGATIVE (NEGATIVE); CLARITY,URINE SL CLOUDY; COLOR,URINE YELLOW; GLUCOSE, URINE (UA) NEGATIVE (NEGATIVE); KETONES,URINE NEGATIVE (NEGATIVE); LEUKOCYTE ESTERASE ,URINE NEGATIVE (NEGATIVE); NITRITE,URINE NEGATIVE (NEGATIVE); PH,URINE 8.5 (5-9); PROTEIN,URINE NEGATIVE (NEGATIVE)
[2019-05-16 09:59] LABS: AMORPHOUS SEDIMENT,UR MOD AMOR PHOSPHATE /LPF; BACTERIA,URINE NEGATIVE /HPF; SQUAMOUS EPITHELIAL CELL,UR 0-2 /HPF; WBC,URINE 0-2 /HPF
[2019-05-16 10:17] LABS: AMPHETAMINE SCREEN, URINE NEGATIVE (NEGATIVE); BARBITURATE SCREEN URINE NEGATIVE (NEGATIVE); BENZODIAZEPINES SCREEN URINE NEGATIVE (NEGATIVE); CANNABINOID SCREEN, URINE POSITIVE (NEGATIVE); COCAINE SCREEN URINE NEGATIVE (NEGATIVE); METHADONE STAT NEGATIVE (NEGATIVE); METHAMPHETAMINE SCREEN URINE S NEGATIVE (NEGATIVE); OPIATE SCREEN URINE NEGATIVE (NEGATIVE); OXYCODONE STAT NEGATIVE (NEGATIVE); PROPOXYPHENE STAT NEGATIVE (NEGATIVE); TRICYCLIC ANTIDEPRESSANTS SCRE NEGATIVE (NEGATIVE)
--- NOTE | 2019-05-16 10:47 | NUR ---
RESTING IN BED. NOTIFIED EVERYTHING WAS BACK ET WE WERE WAITING ON DR TO COME SEE HIM.
--- NOTE | 2019-05-16 10:55 | NUR ---
IN TALKING WITH PT AT THIS TIME.
[2019-05-16] MEDS ORDERED: ONDA4TAB11 PO (11:08)
[2019-05-16] MEDS ORDERED: PROM25TA14 PO (11:08)
[2019-05-16] MEDS ORDERED: HYDR-4226 PO (11:08)
--- NOTE | 2019-05-16 11:16 | NUR ---
WENT IN TO DISCHARGE PT ET PT STATES HE IS NOT READY TO GO HOME ET HE IS NOT BETTER THEN WHEN HE CAME IN. DR NOTIFIED ET HE WENT IN TO TALK TO PT.
[2019-05-16] MEDS ORDERED: morphine INJ 10 MG/ML 1ML (SYR OR VIAL) IVP STA (11:20)
[2019-05-16] MEDS ORDERED: NS IV 500 ML 500 ML IV ONE (11:20)
[2019-05-16] MEDS ORDERED: KETAMINE/NaCl 50 MG/5 ML SYRINGE (ED ONLY) IV ONE (11:30)
[2019-05-16] MEDS ORDERED: PROMETHAZINE INJ 25 MG/ML (PHENERGAN) AMP IVP ONE (11:30)
--- NOTE | 2019-05-16 12:03 | NUR ---
Pt reports feeling much better and pain has resolved at this time.
[2019-05-16 12:10] VITALS: BP 104/72
--- OUTSIDE RECORDS SUMMARY | 2019-05-18 15:55 | XMS REPORT | Continuity of Care Document ---
Author Organization Unknown Address Unknown Phone Unavailable Allergies Active Description Code Type Severity Reaction Onset Reported/Identified Relationship to Patient Clinical Status Yes No Known Drug Allergies [id number] Drug Allergy Unknown N/A 06/24/2018 Medications There is no data. 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 Results Test Result Range - 01/26/18 11:39 GLUCOSE 86 mg/dL 65-99 UREA NITROGEN (BUN) 20 mg/dL 7-25 CREATININE 0.92 mg/dL 0.60-1.35 eGFR NON-AFR. [place] 106 mL/min/1.73m2 > OR = 60 eGFR 123 mL/min/1.73m2 > OR = 60 BUN/CREATININE RATIO NOT APPLICABLE (calc) 6-22 SODIUM 138 mmol/L 135-146 POTASSIUM 4.6 mmol/L 3.5-5.3 CHLORIDE 106 mmol/L 98-110 CARBON DIOXIDE 27 mmol/L 20-32 CALCIUM 9.7 mg/dL 8.6-10.3 PROTEIN, TOTAL 7.1 g/dL 6.1-8.1 ALBUMIN 4.7 g/dL 3.6-5.1 GLOBULIN 2.4 g/dL (calc) 1.9-3.7 ALBUMIN/GLOBULIN RATIO 2.0 (calc) 1.0-2. 5 BILIRUBIN, TOTAL 0.3 mg/dL 0.2-1.2 ALKALINE PHOSPHATASE 105 U/L 40-115 AST 16 U/L 10-40 ALT 17 U/L 9-46 PSA (FREE AND TOTAL) - 01/26/18 11:39 PSA, TOTAL 0.8 ng/mL < OR = 4.0 PSA, FREE 0.1 ng/mL NRG PSA, % FREE 13 % (calc) >25 Complete blood count (CBC) with automate d white blood cell (WBC) differential - 06/24/18 15:11 Blood leukocytes automated count (number/volume) 11.7 10*3/uL 4.3-11.0 Blood erythrocytes automated count (number/volume) 4.77 10*6/uL 4.35-5.85 Venous blood hemoglobin measurement (mass/volume) 14.5 g/dL 13.3-17.7 Blood hematocrit (volume fraction) 42 % 40-54 Automated erythrocyte mean corpuscular volume 88 [ foz_us] 80-99 Automated erythrocyte mean corpuscular h emoglobin (mass per erythrocyte) 30 pg 25-34 Automated erythrocyte mean corpuscular h emoglobin concentration measurement (mass/volume) 35 g/dL 32-36 Automated erythrocyte distribution width ratio 13. 4 % 10.0- 14.5 Automated blood platelet count (count/volume) 339 10*3/uL 130-400 Automated blood platelet mean volume measurement 9.3 [foz_us] 7.4-10.4 Automated blood neutrophils/100 leukocytes 68 % 42-75 Automated blood lymphocytes/100 leukocytes 24 % 12-44 Blood monocytes/100 leukocytes 8 % 0-12 Automated blood eosinophils/100 leukocytes 1 % 0-10 Automated blood basophils/100 leukocytes 0 % 0-10 Blood neutrophils automated count (number/volume) 7.9 10*3 1.8-7.8 Blood lymphocytes automated count (number/volume) 2.8 10*3 1.0-4.0 Blood monocytes automated count (number/volume) 0. 9 10*3 0.0-1.0 Automated eosinophil count 0.1 10*3/uL 0 .0-0.3 Automated blood basophil count (count/volume) 0.0 10*3/uL 0.0-0.1 Comprehensive metabolic panel - 06/24/18 15:11 Serum or plasma sodium measurement (moles/volume) 142 mmol/L 135-145 Serum or plasma potassium measurement (moles/volume) 3.6 mmol/L 3.6-5.0 Serum or plasma chloride measurement (moles/volume) 106 mmol/L 98-107 Carbon dioxide 24 mmol/L 21-32 Serum or plasma anion gap determination (moles/volume) 12 mmol/L 5-14 Serum or plasma urea nitrogen measurement (mass/volume ) 19 mg/dL 7-18 Serum or plasma creatinine measurement (mass/volume) 0.94 mg/dL 0.60-1.30 Serum or plasma urea nitrogen/creatinine mass ratio 20 NRG Serum or plasma creatinine measurement w ith calculation of estimated glomerular filtration rate > NRG Serum or plasma glucose measurement (mass/volume) 104 mg/dL 70-105 Serum or plasma calcium measurement (mass/volume) 9.6 mg/dL 8.5-10.1 Serum or plasma total bilirubin measurement (mass/volu me) 0.6 mg/dL 0.1-1.0 Serum or plasma alkaline phosphatase belem surement (enzymatic activity/volume) 95 U/L 40-136 Serum or plasma aspartate aminotransfera se measurement (enzymatic activity/volume) 13 U/L 5-34 Serum or plasma alanine aminotransferase measurement (enzymatic activity/volume) 14 U/L 0-55 Serum or plasma protein measurement (mass/volume) 7.2 g/dL 6.4-8.2 Serum or plasma albumin measurement (mass/volume) 4.7 g/dL 3.2-4.5 Lipase - 06/24/18 15:11 Lipase 184 U/L 8-78 Complete urinalysis with reflex to cultu re - 06/24/18 16:29 Urine color determination YELLOW NRG Urine clarity determination CLEAR NR G Urine pH measurement by test strip 7 5-9 Specific gravity of urine by test strip 1.010 1.016-1.022 Urine protein assay by test strip, semi-quantitative 2+ NEGATIVE Urine glucose detection by automated test strip NE GATIVE NEGATIVE Erythrocytes detection in urine sediment by light micr oscopy NEGATIVE NEGATIVE Urine ketones detection by automated test strip 2+ NEGATIVE Urine nitrite detection by test strip NEGATIVE NEGATIVE Urine total bilirubin detection by test strip NEGA TIVE NEGATIVE Urine urobilinogen measurement by automated test strip (mass/volume) NORMAL NORMAL Urine leukocyte esterase detection by dipstick 1+ NEGATIVE Automated urine sediment erythrocyte cou nt by microscopy (number/high power field) NONE NRG Automated urine sediment leukocyte count by microscopy (number/high power field) [HPF] NRG Bacteria detection in urine sediment by light microsco py NEGATIVE NRG Squamous epithelial cells detection in u rine sediment by light microscopy 2-5 NRG Crystals detection in urine sediment by light microsco py NONE NRG Casts detection in urine sediment by light microscopy NONE NRG Mucus detection in urine sediment by light microscopy NEGATIVE NRG Complete urinalysis with reflex to culture NO NRG Urine drug screening test - 06/24/18 16: 29 Urine phencyclidine detection by screening method NEGATIVE NEGATIVE Urine benzodiazepines detection by screening method NEGATIVE NEGATIVE Urine cocaine detection NEGATIVE NEGATI VE Urine amphetamines detection by screening method N EGATIVE NEGATIVE Urine methamphetamine detection by screening method NEGATIVE NEGATIVE Urine cannabinoids detection by screening method P OSITIVE NEGATIVE Urine opiates detection by screening method NEGATI VE NEGATIVE Urine barbiturates detection NEGATIVE N EGATIVE Screening urine tricyclic antidepressants detection NEGATIVE NEGATIVE Urine methadone detection by screening method NEGA TIVE NEGATIVE Urine oxycodone detection NEGATIVE NEGA TIVE Urine propoxyphene detection NEGATIVE N EGATIVE Complete blood count (CBC) with automate d white blood cell (WBC) differential - 05/16/19 08:10 Blood leukocytes automated count (number/volume) 13.2 10*3/uL 4.3-11.0 Blood erythrocytes automated count (number/volume) 5.36 10*6/uL 4.35-5.85 Venous blood hemoglobin measurement (mass/volume) 16.5 g/dL 13.3-17.7 Blood hematocrit (volume fraction) 47 % 40-54 Automated erythrocyte mean corpuscular volume 88 [ foz_us] 80-99 Automated erythrocyte mean corpuscular h emoglobin (mass per erythrocyte) 31 pg 25-34 Automated erythrocyte mean corpuscular h emoglobin concentration measurement (mass/volume) 35 g/dL 32-36 Automated erythrocyte distribution width ratio 12. 8 % 10.0- 14.5 Automated blood platelet count (count/volume) 340 10*3/uL 130-400 Automated blood platelet mean volume measurement 9.5 [foz_us] 7.4-10.4 Automated blood neutrophils/100 leukocytes 65 % 42-75 Automated blood lymphocytes/100 leukocytes 24 % 12-44 Blood monocytes/100 leukocytes 9 % 0-12 Automated blood eosinophils/100 leukocytes 2 % 0-10 Automated blood basophils/100 leukocytes 0 % 0-10 Blood neutrophils automated count (number/volume) 8.6 10*3 1.8-7.8 Blood lymphocytes automated count (number/volume) 3.2 10*3 1.0-4.0 Blood monocytes automated count (number/volume) 1. 2 10*3 0.0-1.0 Automated eosinophil count 0.3 10*3/uL 0 .0-0.3 Automated blood basophil count (count/volume) 0.0 10*3/uL 0.0-0.1 Serum or plasma triglyceride measurement (mass/volume) - 05/16/19 08:10 Serum or plasma triglyceride measurement (mass/volume) 146 mg/dL <150 Comprehensive metabolic panel - 05/16/19 08:10 Serum or plasma sodium measurement (moles/volume) 143 mmol/L 135-145 Serum or plasma potassium measurement (moles/volume) 3.9 mmol/L 3.6-5.0 Serum or plasma chloride measurement (moles/volume) 105 mmol/L 98-107 Carbon dioxide 22 mmol/L 21-32 Serum or plasma anion gap determination (moles/volume) 16 mmol/L 5-14 Serum or plasma urea nitrogen measurement (mass/volume ) 13 mg/dL 7-18 Serum or plasma creatinine measurement (mass/volume) 1.02 mg/dL 0.60-1.30 Serum or plasma urea nitrogen/creatinine mass ratio 13 NRG Serum or plasma creatinine measurement w ith calculation of estimated glomerular filtration rate > NRG Serum or plasma glucose measurement (mass/volume) 114 mg/dL 70-105 Serum or plasma calcium measurement (mass/volume) 10.0 mg/dL 8.5-10.1 Serum or plasma total bilirubin measurement (mass/volu me) 0.4 mg/dL 0.1-1.0 Serum or plasma alkaline phosphatase belem surement (enzymatic activity/volume) 117 U/L 40-136 Serum or plasma aspartate aminotransfera se measurement (enzymatic activity/volume) 14 U/L 5-34 Serum or plasma alanine aminotransferase measurement (enzymatic activity/volume) 13 U/L 0-55 Serum or plasma protein measurement (mass/volume) 7.5 g/dL 6.4-8.2 Serum or plasma albumin measurement (mass/volume) 4.7 g/dL 3.2-4.5 Serum or plasma amylase measurement (enz ymatic activity/volume) - 05/16/19 08:10 Serum or plasma amylase measurement (enzymatic activit y/volume) 42 U/L 25-125 Lipase - 05/16/19 08:10 Lipase 29 U/L 8-78 Serum or plasma C reactive protein measu rement (mass/volume) - 05/16/19 08:10 Serum or plasma C reactive protein measurement (mass/v olume) 0.28 mg/dL 0.00-0.50 Complete urinalysis with reflex to cultu re - 05/16/19 09:40 Urine color determination YELLOW NRG Urine clarity determination SL CLOUDY N RG Urine pH measurement by test strip 8.5 5-9 Specific gravity of urine by test strip 1.015 1.016-1.022 Urine protein assay by test strip, semi-quantitative NEGATIVE NEGATIVE Urine glucose detection by automated test strip NE GATIVE NEGATIVE Erythrocytes detection in urine sediment by light micr oscopy NEGATIVE NEGATIVE Urine ketones detection by automated test strip NE GATIVE NEGATIVE Urine nitrite detection by test strip NEGATIVE NEGATIVE Urine total bilirubin detection by test strip NEGA TIVE NEGATIVE Urine urobilinogen measurement by automated test strip (mass/volume) 0.2 mg/dL < = 1.0 Urine leukocyte esterase detection by dipstick NEG ATIVE NEGATIVE Automated urine sediment erythrocyte cou nt by microscopy (number/high power field) NONE NRG Automated urine sediment leukocyte count by microscopy (number/high power field) [HPF] NRG Bacteria detection in urine sediment by light microsco py NEGATIVE NRG Squamous epithelial cells detection in u rine sediment by light microscopy 0-2 NRG Crystals detection in urine sediment by light microsco py PRESENT NRG Casts detection in urine sediment by light microscopy NONE NRG Mucus detection in urine sediment by light microscopy NEGATIVE NRG Complete urinalysis with reflex to culture NO NRG Amorphous sediment detection in urine sediment by ligh t microscopy MOD CLARISA PHOSPHATE NRG Urine drug screening test - 05/16/19 09: 40 Urine phencyclidine detection by screening method NEGATIVE NEGATIVE Urine benzodiazepines detection by screening method NEGATIVE NEGATIVE Urine cocaine detection NEGATIVE NEGATI VE Urine amphetamines detection by screening method N EGATIVE NEGATIVE Urine methamphetamine detection by screening method NEGATIVE NEGATIVE Urine cannabinoids detection by screening method P OSITIVE NEGATIVE Urine opiates detection by screening method NEGATI VE NEGATIVE Urine barbiturates detection NEGATIVE N EGATIVE Screening urine tricyclic antidepressants detection NEGATIVE NEGATIVE Urine methadone detection by screening method NEGA TIVE NEGATIVE Urine oxycodone detection NEGATIVE NEGA TIVE Urine propoxyphene detection NEGATIVE N EGATIVE Encounters ACCT No. Visit Date/Time Discharge Status Pt. Type Provider Facility Loc./Unit Complaint [id number] 08/06/2018 13:20:00 08/06/2018 23:59: 59 [facility] Outpatient ABEL OZUNA [facility] [place] [facility] [id number] 01/26/2018 11:00:00 Document Registration [id number] 05/16/2019 08:04:00 020 12:10:00 DIS Emergency KASSI ALLEN MD [facility] ER PANCREATITIS;VOMITING [id number] 06/24/2018 14:35:00 019 18:23:00 DIS Emergency JODI HAGEN APRN [facility] ER VOMITING
== END 2019-05-16 12:10 | disposition home or self-care (01) ==
LOC: ER 08:04 → EDUNIT# 08:04 → ER 12:10
DX: R10.13 Epigastric pain (principal); R11.2 Nausea with vomiting, unspecified; Z87.891 Personal history of nicotine dependence
CPT/HCPCS: 36415; 74177; 80053; 80306; 81000; 82150; 83690; 84478; 85025; 86141

== ENCOUNTER 2020-07-16 05:39 | Outpatient (CLI) | payer BC, OTHER ==
[~2020-07-16] VITALS: Ht 188 cm; Wt 111.6 kg
[~2020-07-16 05:39] MED LIST changes: +HYDR-4226 PO; +ONDA4TAB11 PO; +PROM25TA14 PO
[2020-07-16] MEDS ORDERED: TRZ50T PO (12:34)
== END 2020-07-16 13:50 | disposition home or self-care (01) ==
LOC: PREOP 05:39
PROVIDERS: ATTEND Surgery
DX: Z01.818 Encounter for other preprocedural examination (principal)

== ENCOUNTER 2020-07-23 09:52 | Day surgery (SDC) | payer BC, OTHER ==
[~2020-07-23] VITALS: Ht 188 cm; Wt 112.0 kg
[~2020-07-23 09:52] MED LIST changes: +TRZ50T PO
[2020-07-23] MEDS ORDERED: LACTATED RINGERS 1,000 ML IV STA (09:55)
[2020-07-23] MEDS ORDERED: LACTATED RINGERS 1,000 ML IV ONE (10:01)
[2020-07-23 10:13] VITALS: BP 135/83
[2020-07-23] MEDS ORDERED: proPOfol 200 MG/20 ML (DIPRIVAN) VIAL IV ONE (11:03)
[2020-07-23] MEDS ORDERED: MIDAZOLAM 2 MG/2 ML (VERSED) VIAL ONE (11:03)
--- NOTE | 2020-07-23 11:06 | Progress Note-Pre Operative ---
Pre-Operative Progress Note H&P Reviewed The H&P was reviewed, patient examined and no changes noted. Time Seen by Provider: 11:03 Date H&P Reviewed: July 23, 2020 Time H&P Reviewed: 11:03 Pre-Operative Diagnosis: Rectal bleed BRODIE BA DO July 23, 2020 11:06
[2020-07-23 12:15] VITALS: BP 124/77
--- NOTE | 2020-07-23 12:16 | Progress Note-Post Operative ---
Post-Operative Progess Note Surgeon (s)/Steel Spar Operator (s) Surgeon BRODIE BA DO Steel Spar Operator: none Pre-Operative Diagnosis Rectal bleed Post-Operative Diagnosis polyp int hemorrhoids Procedure & Operative Findings Date of Procedure 07/23/20 Procedure Performed/Findings After informed consent was obtained, the patient was brought to the endoscopy suite, placed in bed in left lateral decubitus position. He was administered IV sedation by the LAMP CLEANER who then monitored him vitals the entire time, heart rate, blood pressure and pulse ox, started the colonoscopy. Pushed all the way to the cecum about 150 cm, took a picture of the appendiceal orifice and noted the ileo-cecal valve. Then slowly withdrew the scope insufflating to l ook circumferentially at the gonzalez looking at the cecum, up the ascending colon to the hepatic flexure, down the transverse colon, to the splenic flexure, into the descending colon down. Saw a polyp in the descending colon and elected to do a hot biopsy of this; took it in 2 bites. Finally into the sigmoid and then into the rectum, retroflexed in the rectal vault, saw sone minimal internal hemorrhoids and took a picture.Then removed the scope. The patient tolerated the procedure. He was recovered in endoscopy suite. Anesthesia Type IV sedation by LAMP CLEANER Estimated Blood Loss Estimated blood loss (mL): scant Specimens/Packing Specimens Removed desc colon polyp BRODIE BA DO July 23, 2020 12:16
--- NOTE | 2020-07-23 12:16 | Endoscopy Discharge Instruct ---
Endo Procedure/Findings Findings 1.: Polyp 2.: Internal Hemorrhoids Discharge Instructions - Activity: You might feel a little sleepy until tomorrow. This is due to the medicine you received to relax you. Until tomorrow, you should: NOT drive a car, operate machinery or power tools. NOT drink any alcoholic beverages. NOT make any important decisions or sign importortant papers. Do not return to work until tomorrow, unless otherwise instructed. Resume previous activities tomorrow. Diet: Start by taking liquids. If you tolerate liquids, advance to solid food. 1.: Colonscopy in 5 years Notify Physician - If you experience excessive bleeding, unusual abdominal pain, fever, or chest pain, contact your doctor immediately. BRODIE BA DO July 23, 2020 12:16
[2020-07-23 12:20] VITALS: BP 104/72
[2020-07-23 12:25] VITALS: BP_SYST 125; BP_SYST 129; BP_DIAS 75; BP_DIAS 80
[2020-07-23 12:55] VITALS: BP 127/81
--- NOTE | 2020-07-23 13:43 | Anesthesia-General Post-Op ---
MAC Patient Condition Mental Status/LOC: Same as Preop Cardiovascular: Satisfactory Nausea/Vomiting: Absent Respiratory: Satisfactory Pain: Controlled Complications: Absent Post Op Complications Complications None Follow Up Care/Instructions Patient Instructions None needed. Anesthesiology Discharge Order Discharge Order Patient is doing well, no complaints, stable vital signs, no apparent adverse anesthesia problems. No complications reported per nursing. PANDA MEJIA CRNA July 23, 2020 13:43
== END 2020-07-23 13:00 | disposition home or self-care (01) ==
LOC: ENDO 09:52
PROVIDERS: ATTEND Surgery
DX: D12.4 Benign neoplasm of descending colon (principal); K64.8 Other hemorrhoids; Z87.891 Personal history of nicotine dependence
CPT/HCPCS: 88305